=== PATIENT | female | born 1970 | race American Indian/Alaskan Native ===

== ENCOUNTER 2017-01-30 19:34 | Emergency (ER) | payer OTHER ==
[2017-01-30 19:47] VITALS: BP 153/99; PULSE 73; RESP 20; TEMP 97.9; O2SAT 98
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
== END 2017-01-30 21:23 | disposition home or self-care (01) ==
LOC: C.ER 19:34
DX: R07.81 Pleurodynia (principal); V49.40XA Driver injured in collision with unspecified motor vehicles in traffic accident, initial encounter